=== PATIENT | female | born 1995 | race African-American/Black ===

== ENCOUNTER 2017-01-22 20:24 | Emergency (ER) | payer BC ==
[2017-01-22 20:55] VITALS: BP 131/69
[2017-01-22] MEDS ORDERED: Ciprofloxacin 0.3% OPTH.SOL* 2.5 ML BTL BOTH EYES ONE (21:33)
--- NOTE | 2017-01-22 21:39 | UC ---
Eye Complaint HPI - HPI Summary HPI Summary: Bilat eye redness, irritation, and drainage since yesterday. Lots of thick d/c today. 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 - History of Current Complaint Chief Complaint: UCEye Stated Complaint: EYE COMPLAINT Time Seen by Provider: 01/22/17 21:27 Hx Obtained From: Patient Hx Last Menstrual Period: 01/12/17 ?: No Onset/Duration: Gradual Onset, Lasting Days Timing: Constant Severity Initially: Mild Location of Injury: Conjunctiva Aggravating Factor(s): Nothing Alleviating Factor(s): Nothing Associated Signs And Symptoms: Positive: Drainage (Clear), Drainage (Purulent) - Allergies/Home Medications Allergies/Adverse Reactions: Allergies Allergy/AdvReac Type Severity Reaction Status Date / Time No Known Allergies Allergy Verified 01/22/17 20:55 PMH/Surg Hx/FS Hx/Imm Hx Endocrine History Of: Denies: Diabetes Cardiovascular History Of: Denies: Hypertension, Pacemaker/ICD GI/ History Of: Denies: Renal Disease - Surgical History Surgical History: None - Family History Known Family History: Positive: Hypertension - Social History Occupation: Student Lives: Alone Alcohol Use: Occasionally Substance Use Type: None Smoking Status (MU): Never Smoked Tobacco Review of Systems Constitutional: Negative Skin: Negative Eyes: Drainage, Eye Redness ENT: Negative Respiratory: Negative Cardiovascular: Negative Gastrointestinal: Negative Genitourinary: Negative Motor: Negative Neurovascular: Negative Musculoskeletal: Negative Neurological: Negative Psychological: Negative All Other Systems Reviewed And Are Negative: Yes Physical Exam Triage Information Reviewed: Yes Appearance: Well-Appearing, No Pain Distress, Well-Nourished Vital Signs: Initial Vital Signs Temp 98.6 F 01/22/17 20:52 Pulse 53 01/22/17 20:52 Resp 20 01/22/17 20:52 BP 131/69 01/22/17 20:52 Pulse Ox 100 01/22/17 20:52 Vital Signs Reviewed: Yes Eyes: Positive: Conjunctiva Inflamed - bilat, Discharge - foul ENT Exam: Normal ENT: Positive: Normal ENT inspection, Hearing grossly normal, Pharynx normal, TMs normal Dental Exam: Normal Neck exam: Normal Neck: Positive: Supple Respiratory Exam: Normal Respiratory: Positive: Chest non-tender, Lungs clear, Normal breath sounds, No respiratory distress, No accessory muscle use Cardiovascular Exam: Normal Cardiovascular: Positive: RRR, No Murmur Musculoskeletal Exam: Normal Neurological Exam: Normal Neurological: Positive: Alert Psychological Exam: Normal Skin Exam: Normal Eye Complaint Course/Dx - Differential Dx/Diagnosis Provider Diagnoses: bilat conjunctivitis Discharge - Discharge Plan Condition: Stable Disposition: HOME Prescriptions: Ciprofloxacin 0.3% OPTH.BRENNA* [Cipro 0.3% Opth*] 2 drop BOTH EYES QID #5 ml Patient Education Materials: Conjunctivitis (ED) [facility] [Primary Care Provider] -
== END 2017-01-22 21:44 | disposition home or self-care (01) ==
LOC: UCEAST 20:24
DX: H10.33 Unspecified acute conjunctivitis, bilateral (principal)
CPT/HCPCS: 99212; A9270-GY; G0463

== ENCOUNTER 2019-03-25 12:09 | Emergency (ER) | payer BC, OTHER ==
[2019-03-25 12:56] VITALS: BP 142/72
--- NOTE | 2019-03-25 13:32 | UC ---
- HPI Summary HPI Summary: 23 yo female presents with needlestick. She tells me that she is an [employer] at [employer] and was pulling out a used diabetic lancet when she accidentally punctured her left index finger pad. She cleansed the area with soap and water. She notified her deputy manager and was advised to be seen for the stick. She is unsure as to the HIV/hepatitis status of the [employer] resident. Pt denies any symptoms at this time. - History of Current Complaint Chief Complaint: UCBodyFluidExposure Stated Complaint: BLOOD EXPOSURE Time Seen by Provider: 03/25/19 13:31 Needlestick: Solid Needle Depth of Needlestick: Puncture Depth: <2mm Bleeding at Site: Yes - scant Body Fluid Exposure: Blood Treatment CHILD & ADOLESCENT PSYCHIATRIST: Cleaned Wound, Expressed Blood - Source Information HIV: Unknown Hepatitis: Unknown PMH/Surg Hx/FS Hx/Imm Hx - Additional Past Medical History Additional PMH: None - Surgical History Surgical History: None - Family History Known Family History: Positive: Hypertension - Social History Occupation: Employed Full-time Lives: With Family Alcohol Use: Occasionally Substance Use Type: None Smoking Status (MU): Never Smoked Tobacco Review of Systems All Other Systems Reviewed And Are Negative: Yes Constitutional: Positive: Negative Skin: Positive: Other - left index finger needlestick Respiratory: Positive: Negative Cardiovascular: Positive: Negative Neurovascular: Positive: Negative Musculoskeletal: Positive: Negative Neurological: Positive: Negative Psychological: Positive: Negative Physical Exam - Summary Physical Exam Summary: GENERAL: NAD. WDWN. No pain distress. SKIN: LEFT INDEX FINGER: Pad with <1mm puncture wound. No active bleeding or discharge. NTTP. CHEST: No accessory muscle use. Breathing comfortably and in no distress. CV: Pulses intact. Cap refill <2seconds NEURO: Alert. PSYCH: Age appropriate behavior. Triage Information Reviewed: Yes Vital Signs: Initial Vital Signs Temp 98 F 03/25/19 12:54 Pulse 85 03/25/19 12:54 Resp 18 03/25/19 12:54 BP 142/72 03/25/19 12:54 Pulse Ox 100 03/25/19 12:54 Vital Signs Reviewed: Yes Needlestick Course/Dx - Course Course Of Treatment: Pt is utd on tdap. The status of the [employer] resident is unknown HIV/Hepatitis, but pt states that she is going to ask her deputy manager if the resident is willing to be tested. Advised against PEP today as this is a low risk exposure. Did draw for HIV and hepatitis today and will have pt f/u with [facility] for her work related needlestick. - Diagnoses Provider Diagnoses: Needlestick injury of finger of left hand Discharge - Sign-Out/Discharge Documenting (check all that apply): Patient Departure All imaging exams completed and their final reports reviewed: No Studies - Discharge Plan Condition: Stable Disposition: HOME Patient Education Materials: Needle Stick Injuries (ED), HIV Infection (DC), PEP Therapy (DC) Referrals: Kalia Juarez MD [Medical Doctor] - As Soon As Possible No Primary Care Phys,NOPCP [Primary Care Provider] - Additional Instructions: If you develop a fever, shortness of breath, chest pain, new or worsening symptoms - please call your PCP or go to the ED immediately. Please follow up with Occupational Medicine Dr. Juarez at the number below ( Worker's Comp) for recheck of your needlestick injury - Billing Disposition and Condition Condition: STABLE Disposition: Home
[2019-03-25 19:28] LABS: Rapid HIV 1 Nonreactive (Nonreactive)
[2019-03-25 19:47] LABS: Hepatitis B Surface Antigen Negative (Negative)
[2019-03-25 20:04] LABS: Hepatitis B Surface Ab Immune (Immune); Hepatitis C Antibody Negative (Negative)
--- NOTE | 2019-03-26 07:59 | UC ---
- Progress Note Progress Note: Neg Hep B, NEg Hep C, Neg HIV Please contact pt with results elioj 03/26/19 Course/Dx - Diagnoses Provider Diagnoses: Needlestick injury of finger of left hand Discharge - Sign-Out/Discharge Documenting (check all that apply): Post-Discharge Follow Up All imaging exams completed and their final reports reviewed: No Studies - Discharge Plan Condition: Stable Disposition: HOME Patient Education Materials: Needle Stick Injuries (ED), HIV Infection (DC), PEP Therapy (DC) Referrals: Kalia Juarez MD [Medical Doctor] - As Soon As Possible No Primary Care Phys,NOPCP [Primary Care Provider] - Additional Instructions: If you develop a fever, shortness of breath, chest pain, new or worsening symptoms - please call your PCP or go to the ED immediately. Please follow up with Occupational Medicine Dr. Juarez at the number below ( Worker's Comp) for recheck of your needlestick injury - Billing Disposition and Condition Condition: STABLE Disposition: Home
== END 2019-03-25 14:01 | disposition home or self-care (01) ==
LOC: UCEAST 12:09
DX: Z77.21 Contact with and (suspected) exposure to potentially hazardous body fluids (principal); E10.9 Type 1 diabetes mellitus without complications; Z79.4 Long term (current) use of insulin
CPT/HCPCS: 36415; 86703; 86706; 86803; 87340; 99211; G0463